=== PATIENT | female | born 1980 | race Caucasian/White ===

== ENCOUNTER 2018-04-30 09:24 | Emergency (ER) | payer BC ==
[2018-04-30] MEDS ORDERED: Sodium Chloride 0.9% 10 ML Syringe FLUSH PRN ×2 (09:28→10:49)
--- NOTE | 2018-04-30 09:32 | EDM.PDOC ---
ED HPI GENERAL MEDICAL PROBLEM - General Stated Complaint: SICK Time Seen by Provider: 04/30/18 09:29 Source of Information: Reports: Patient, Family, RN, RN Notes Reviewed History Limitations: Reports: Other (anxiety) - History of Present Illness INITIAL COMMENTS - FREE TEXT/NARRATIVE: Pt to the ER with c/o chest pain, numbness and tingling in the arms, SOB and diaphoresis. She states the chest pain began about 0850 and she felt she was unable to catch her breath. She states history of anxiety, depression, and GERD. Pt denies N/V/D. Onset: Today, Sudden Duration: Constant Location: Reports: Chest Quality: Reports: Pressure Severity: Moderate Improves with: Reports: None Worsens with: Reports: None Associated Symptoms: Reports: Chest Pain, Diaphoresis, Shortness of Breath, Weakness (arms bilaterally) Mid-Sternal Pain Score (Numeric/FACES): 9 - Related Data Allergies Allergy/AdvReac Type Severity Reaction Status Date / Time No Known Allergies Allergy Verified 04/30/18 09:49 Home Meds: Home Meds Citalopram [Citalopram HBr] 40 mg PO DAILY 04/30/18 [History] Lisdexamfetamine Dimesylate [Vyvanse] 30 mg PO DAILY 04/30/18 [History] Omeprazole Magnesium [Prilosec Otc] 20 mg PO DAILY 04/30/18 [History] buPROPion [Wellbutrin SR] 150 mg PO DAILY 04/30/18 [History] ED ROS GENERAL - Review of Systems Review Of Systems: ROS reveals no pertinent complaints other than HPI. ED EXAM, GENERAL - Physical Exam Exam: See Below Exam Limited By: Other (Very anxious) General Appearance: Alert, WD/WN, Anxious, Moderate Distress Eye Exam: Bilateral Eye: EOMI, Normal Inspection Ears: Normal External Exam, Hearing Grossly Normal Nose: Normal Inspection Throat/Mouth: Normal Inspection, Normal Lips, Normal Teeth, Normal Gums, Normal Oropharynx, Normal Voice, No Airway Compromise Head: Atraumatic, Normocephalic Neck: Normal Inspection, Supple, Non-Tender, Full Range of Motion Respiratory/Chest: No Respiratory Distress, Lungs Clear, Normal Breath Sounds, No Accessory Muscle Use, Chest Non-Tender, Other (hyperventilation) Cardiovascular: Normal Peripheral Pulses, Regular Rate, Rhythm, No Edema, No Gallop, No JVD, No Murmur, No Rub Peripheral Pulses: 2+: Radial (L), Radial (R), Dorsalis Pedis (L), Dorsalis Pedis (R) GI/Abdominal: Normal Bowel Sounds, Soft, Non-Tender (Female) Exam: Deferred Rectal (Female) Exam: Deferred Back Exam: Normal Inspection, Full Range of Motion Extremities: Normal Inspection, Normal Range of Motion, Non-Tender, No Pedal Edema, Normal Capillary Refill Neurological: Alert, Oriented, Slow to Respond, Other (states her arms are heavy and numb, states she is unable to hold them up. ) Psychiatric: Anxious, Tearful Skin Exam: Warm, Diaphoretic Lymphatic: No Adenopathy EKG INTERPRETATION EKG Date: 04/30/18 Time: 09:28 Rate (Beats/Min): 65 ST-T: Elevated (anterior leads) Comparison: NA - No Prior EKG Course - Vital Signs Last Recorded V/S: Last Vital Signs Temp 95.6 F 04/30/18 09:31 Pulse 73 04/30/18 09:31 Resp 20 04/30/18 09:31 BP 127/87 04/30/18 11:20 Pulse Ox 100 04/30/18 09:31 - Orders/Labs/Meds Orders: Active Orders 24 hr Category Date Time Status EKG Documentation Completion [RC] STAT Care 04/30/18 09:28 Active Peripheral IV Care [RC] . DIRECTED Care 04/30/18 09:29 Active Peripheral IV Care [RC] . DIRECTED Care 04/30/18 10:49 Active DRUG SCREEN URINE BIORAD [URCHEM] Stat Lab 04/30/18 11:14 Ordered HCG QUALITATIVE,URINE [URCHEM] Stat Lab 04/30/18 11:14 Ordered UA W/MICROSCOPIC [URIN] Stat Lab 04/30/18 11:14 Ordered Heparin Sodium/0.45% NaCl [Heparin 25,000 Units in 1/2 Med 04/30/18 11:00 Active NS 500 ML] 25,000 units in 500 ml IV TITRATE Sodium Chloride 0.9% [Saline Flush] Med 04/30/18 09:28 Active 10 ml FLUSH ASDIRECTED PRN Sodium Chloride 0.9% [Saline Flush] Med 04/30/18 10:49 Active 10 ml FLUSH ASDIRECTED PRN Peripheral IV Insertion Adult [OM.PC] Stat Oth 04/30/18 09:28 Ordered Peripheral IV Insertion Adult [OM.PC] Stat Oth 04/30/18 10:49 Ordered Medication Orders Heparin Sodium/Sodium Chloride (Heparin 25,000 Units In 1/2 Ns 500 Ml) 25,000 units in 500 mls @ 25.038 mls/hr IV TITRATE ISAIAS; Protocol Last Admin: 04/30/18 11:05 Dose: 18 units/kg/hr, 37.557 mls/hr Sodium Chloride (Saline Flush) 10 ml FLUSH ASDIRECTED PRN PRN Reason: Keep Vein Open Last Admin: 04/30/18 10:35 Dose: 10 ml Sodium Chloride (Saline Flush) 10 ml FLUSH ASDIRECTED PRN PRN Reason: Keep Vein Open Labs: Laboratory Tests 04/30/18 04/30/18 04/30/18 Range/Units 09:35 09:35 09:35 WBC 10.8 H (5.0-10.0) 10^3/uL RBC 4.88 (4.2-5.4) 10^6/uL Hgb 14.1 (12.0-16.0) g/dL Hct 42.3 (37.0-47.0) % MCV 86.7 (80-100) fL MCH 28.9 (27.0-34.0) pg MCHC 33.3 (33.0-35.0) g/dL Plt Count 314 (150-450) 10^3/uL Neut % (Auto) 45.9 (42.2-75.2) % Lymph % (Auto) 39.0 (20.5-50.1) % [place] % (Auto) 11.0 H (2-8) % Eos % (Auto) 3.8 H (1.0-3.0) % Baso % (Auto) 0.3 (0.0-1.0) % PT 9.9 (9.0-12.0) SEC INR 1.0 (0.9-1.2) Sodium 136 (135-145) mmol/L Potassium 3.4 L (3.6-5.0) mmol/L Chloride 104 (101-111) mmol/L Carbon Dioxide 20.0 L (21.0-31.0) mmol/L Anion Gap 15.4 BUN 13 (7-18) mg/dL Creatinine 1.1 (0.6-1.3) mg/dL Est Cr Clr Drug Dosing 64.28 mL/min Estimated GFR (MDRD) 55 BUN/Creatinine Ratio 11.81 Glucose 150 H (74-105) mg/dL Calcium 9.2 (8.4-10.2) mg/dl Total Bilirubin 1.0 (0.2-1.0) mg/dL AST 28 (10-42) IU/L ALT 23 (10-60) IU/L Alkaline Phosphatase 81 (42-121) IU/L Troponin I < 0.02 (0.00-0.02) ng/ml Total Protein 7.4 (6.7-8.2) g/dl Albumin 4.1 (3.2-5.5) g/dl Globulin 3.3 Albumin/Globulin Ratio 1.24 Urine HCG, Qual Urine Opiates Screen (NEGATIVE) Ur Oxycodone Screen (NEGATIVE) Urine Methadone Screen (NEGATIVE) Ur Barbiturates Screen (NEGATIVE) U Tricyclic Antidepress (NEGATIVE) Ur Phencyclidine Scrn (NEGATIVE) Ur Amphetamine Screen (NEGATIVE) U Methamphetamines Scrn (NEGATIVE) Urine MDMA Screen (NEGATIVE) U Benzodiazepines Scrn (NEGATIVE) Urine Cocaine Screen (NEGATIVE) U Marijuana (THC) Screen (NEGATIVE) Ethyl Alcohol < 5 mg/dL 04/30/18 04/30/18 Range/Units 11:14 11:14 WBC (5.0-10.0) 10^3/uL RBC (4.2-5.4) 10^6/uL Hgb (12.0-16.0) g/dL Hct (37.0-47.0) % MCV (80-100) fL MCH (27.0-34.0) pg MCHC (33.0-35.0) g/dL Plt Count (150-450) 10^3/uL Neut % (Auto) (42.2-75.2) % Lymph % (Auto) (20.5-50.1) % [place] % (Auto) (2-8) % Eos % (Auto) (1.0-3.0) % Baso % (Auto) (0.0-1.0) % PT (9.0-12.0) SEC INR (0.9-1.2) Sodium (135-145) mmol/L Potassium (3.6-5.0) mmol/L Chloride (101-111) mmol/L Carbon Dioxide (21.0-31.0) mmol/L Anion Gap BUN (7-18) mg/dL Creatinine (0.6-1.3) mg/dL Est Cr Clr Drug Dosing mL/min Estimated GFR (MDRD) BUN/Creatinine Ratio Glucose (74-105) mg/dL Calcium (8.4-10.2) mg/dl Total Bilirubin (0.2-1.0) mg/dL AST (10-42) IU/L ALT (10-60) IU/L Alkaline Phosphatase (42-121) IU/L Troponin I (0.00-0.02) ng/ml Total Protein (6.7-8.2) g/dl Albumin (3.2-5.5) g/dl Globulin Albumin/Globulin Ratio Urine HCG, Qual Negative Urine Opiates Screen Negative (NEGATIVE) Ur Oxycodone Screen Negative (NEGATIVE) Urine Methadone Screen Negative (NEGATIVE) Ur Barbiturates Screen Negative (NEGATIVE) U Tricyclic Antidepress Negative (NEGATIVE) Ur Phencyclidine Scrn Negative (NEGATIVE) Ur Amphetamine Screen Positive H (NEGATIVE) U Methamphetamines Scrn Negative (NEGATIVE) Urine MDMA Screen Negative (NEGATIVE) U Benzodiazepines Scrn Negative (NEGATIVE) Urine Cocaine Screen Negative (NEGATIVE) U Marijuana (THC) Screen Negative (NEGATIVE) Ethyl Alcohol mg/dL Meds: Medications Generic Name Dose Route Start Last Admin Trade Name Freq PRN Reason Stop Dose Admin Heparin Sodium/Sodium Chloride 25,000 units in 500 mls @ 25.038 mls/hr 11:00 04/30/18 11:05 Heparin 25,000 Units In 1/2 Ns 500 Ml IV 18 units/kg/hr TITRATE ISAIAS 37.557 mls/hr Administration Protocol 12 UNITS/KG/HR Sodium Chloride 10 ml 04/30/18 09:28 04/30/18 10:35 Saline Flush FLUSH 10 ml ASDIRECTED PRN Administration Keep Vein Open Sodium Chloride 10 ml 04/30/18 10:49 Saline Flush FLUSH ASDIRECTED PRN Keep Vein Open Discontinued Medications Generic Name Dose Route Start Last Admin Trade Name Freq PRN Reason Stop Dose Admin Aspirin 324 mg 04/30/18 10:47 04/30/18 10:54 Aspirin PO 04/30/18 10:48 324 mg ONETIME ONE Administration Heparin Sodium (Porcine) Confirm 04/30/18 11:00 04/30/18 11:04 Heparin Sodium Administered 04/30/18 11:01 Not Given Dose 5,000 units .ROUTE .STK-MED ONE Heparin Sodium (Porcine) 4,000 units 04/30/18 11:02 04/30/18 11:04 Heparin Sodium IVPUSH 04/30/18 11:03 4,000 units .BOLUS ONE Administration Nitroglycerin 0.4 mg 04/30/18 11:08 Nitrostat SL 04/30/18 11:09 ONETIME ONE Nitroglycerin 0.4 mg 04/30/18 10:59 04/30/18 11:20 Nitrostat SL 04/30/18 11:00 0.4 mg ONETIME ONE Administration Tenecteplase 50 mg 04/30/18 10:49 04/30/18 11:00 Tnkase IV 04/30/18 10:50 50 mg ONETIME ONE Administration Protocol - Radiology Interpretation Free Text/Narrative:: Chest xray: No acute cardiopulmonary abnormality. Azygous lymphadenopathy See rad report - Re-Assessments/Exams Free Text/Narrative Re-Assessment/Exam: 04/30/18 11:43 Discussed patient case with Dr. Omalley who advised Heparin bolus, Heparin drip, and TNKase be given. The patient will then be transferred via [facility] to [facility] in . Departure - Departure Time of Disposition: 11:42 Disposition: DC/Tfer to Acute Hospital 02 Reason for Transfer *Q: Other Condition: Fair, Serious, Critical Clinical Impression: Acute myocardial infarction Qualifiers: Myocardial infarction type: ST elevation myocardial infarction Involved coronary artery: LAD coronary artery Qualified Code(s): I21.02 - ST elevation ( STEMI) myocardial infarction involving left anterior descending coronary artery Referrals: PCP,Unobtain [Primary Care Provider] - Forms: ED Department Discharge, Interfacility Transfer EMTALA - My Orders Last 24 Hours: My Active Orders 04/30/18 09:28 EKG Documentation Completion [RC] STAT Sodium Chloride 0.9% [Saline Flush] 10 ml FLUSH ASDIRECTED PRN Peripheral IV Insertion Adult [OM.PC] Stat 04/30/18 09:29 Peripheral IV Care [RC] . DIRECTED 04/30/18 10:49 Peripheral IV Care [RC] . DIRECTED Sodium Chloride 0.9% [Saline Flush] 10 ml FLUSH ASDIRECTED PRN Peripheral IV Insertion Adult [OM.PC] Stat 04/30/18 11:00 Heparin Sodium/0.45% NaCl [Heparin 25,000 Units in 1/2 NS 500 ML] 25,000 units in 500 ml IV TITRATE 04/30/18 11:14 DRUG SCREEN URINE BIORAD [URCHEM] Stat HCG QUALITATIVE,URINE [URCHEM] Stat UA W/MICROSCOPIC [URIN] Stat - Assessment/Plan Last 24 Hours: My Active Orders 04/30/18 09:28 EKG Documentation Completion [RC] STAT Sodium Chloride 0.9% [Saline Flush] 10 ml FLUSH ASDIRECTED PRN Peripheral IV Insertion Adult [OM.PC] Stat 04/30/18 09:29 Peripheral IV Care [RC] . DIRECTED 04/30/18 10:49 Peripheral IV Care [RC] . DIRECTED Sodium Chloride 0.9% [Saline Flush] 10 ml FLUSH ASDIRECTED PRN Peripheral IV Insertion Adult [OM.PC] Stat 04/30/18 11:00 Heparin Sodium/0.45% NaCl [Heparin 25,000 Units in 1/2 NS 500 ML] 25,000 units in 500 ml IV TITRATE 04/30/18 11:14 DRUG SCREEN URINE BIORAD [URCHEM] Stat HCG QUALITATIVE,URINE [URCHEM] Stat UA W/MICROSCOPIC [URIN] Stat
[2018-04-30 10:01] LABS: ANION GAP 15.4; CHLORIDE,CL 104 mmol/L (101-111); SODIUM,NA 136 mmol/L (135-145)
[2018-04-30] MEDS ORDERED: Aspirin 81 MG Tab.Chew PO ONE (10:47)
[2018-04-30] MEDS ORDERED: Tenecteplase 50 MG Kit IV ONE (10:49)
[2018-04-30] MEDS ORDERED: Nitroglycerin 0.4 MG Tab.SL SL ONE ×2 (10:59→11:08)
[2018-04-30] MEDS ORDERED: Heparin Sodium 5,000 Units/ML Vial ONE (11:00)
[2018-04-30] MEDS ORDERED: Heparin Sodium/0.45% NaCl 25,000 UNITS/500 ML BAG IV SCH (11:00)
[2018-04-30] MEDS ORDERED: Heparin Sodium 5,000 Units/ML Vial IVPUSH ONE (11:02)
--- NOTE | 2018-04-30 11:16 | CR ---
CLINICAL HISTORY: 37-year-old female with chest pain. INTERPRETATION: Upright AP chest radiograph documents large azygous lymph node (no comparison films i mmediately available). Normal cardiac silhouette and bony thorax (external care tech leads). No cephalization of flow, signs of alveolar edema or dependent pleural effusion. No parenchymal lung nodule or mass lesion, other hilar or mediastinal lymphadenopathy, focal lobar pn eumonia or atelectasis. No pneumothorax or free subdiaphragmatic air. CONCLUSION: No acute cardiopulmonary abnormality. Azygous lymphadenopathy.
== END 2018-04-30 11:34 ==
LOC: DL.ED 09:24
DX: I21.02 ST elevation (STEMI) myocardial infarction involving left anterior descending coronary artery (principal); Z79.899 Other long term (current) drug therapy
CPT/HCPCS: 36415; 71045; 80053; 80305; 81001; 81025; 84484; 85025; 85610; 93005; 96365; 96375; 99285; A9270; G0480; J1644; J3101; J7050

== ENCOUNTER 2020-12-22 05:30 | Day surgery (SDC) | payer BC ==
[2020-12-22] MEDS ORDERED: Midazolam 1 MG/ML 2 ML SDV IV ONE ×3 (05:31→06:39)
[2020-12-22] MEDS ORDERED: fentaNYL 100 MCG/2 ML SDV IV ONE ×3 (05:31→06:37)
[2020-12-22] MEDS ORDERED: Dextrose 5%-0.45% NaCl 1,000 ML IV SCH (06:00)
[2020-12-22] MEDS ORDERED: Midazolam 1 MG/ML 2 ML SDV ONE (06:10)
[2020-12-22] MEDS ORDERED: fentaNYL 100 MCG/2 ML SDV ONE (06:11)
--- NOTE | 2020-12-22 07:29 | OR ---
DATE: 12/22/2020 PROCEDURES: Esophagogastroduodenoscopy and multiple pinch biopsies. INSTRUMENT USED: [id number] Olympus video panendoscope. PREMEDICATIONS: No oral or topical anesthesia was used. Fentanyl 100 mcg intravenous, Versed 2 mg intravenous, and nasal O2 cannula. The procedure was done under pulse oximetry, BP recording, and cardiac care nurse. INDICATIONS: The patient with longstanding heartburn and regurgitation, unexplained and not responsive to medical measures, on PPI. Esophagogastroduodenoscopy is performed for detection of any active erosive lesions, Esteves esophagus and/or malignancy also under consideration, H pylori status to be determined, endoscopic hemostasis therapy if needed. DESCRIPTION OF PROCEDURE: The scope was passed with ease. Adequate visualization of the esophagus was made from the proximal to the distal areas. No upper esophageal lesions were identified. No distal esophageal stricture. No uphill or downhill esophageal varices. No Aysha-Celeste tear. No evidence of erosive esophagitis by [place] criteria. No esophageal polyp or tumor mass was identified. The Z-line was seen at around 39 cm distal to the oral verge. No proximal gastric varices were noted. Gastric fundus examination by retroflexion showed numerous diminutive benign-appearing polyps. No gastric ulcer, malignant mass, or vascular ectasia was identified. The duodenal bulb showed no ulcer. The visualized second part of the duodenum was unremarkable. Multiple pinch biopsies were taken from the gastric antrum and proximal body and sent for PyloriTek test for H pylori, and if negative in an hour, the tissue is to be sent for histopathology. Gastric antral erosion was noted without bleeding from it. No bleeding was noted from any of the visualized areas at the completion of the examination. IMPRESSION: Gastric antral erosion and diminutive gastric fundus polyps. The patient tolerated the procedure well. [facility] /[id number]
== END 2020-12-22 08:50 | disposition home or self-care (01) ==
LOC: DL.ENDO 05:30
PROVIDERS: ATTEND Internal Medicine Gastroenterology
DX: K25.9 Gastric ulcer, unspecified as acute or chronic, without hemorrhage or perforation (principal); K31.7 Polyp of stomach and duodenum; K21.9 Gastro-esophageal reflux disease without esophagitis; E66.09 Other obesity due to excess calories; I25.10 Atherosclerotic heart disease of native coronary artery without angina pectoris; Z95.5 Presence of coronary angioplasty implant and graft; Z98.890 Other specified postprocedural states; Z87.891 Personal history of nicotine dependence; Z68.41 Body mass index [BMI] 40.0-44.9, adult
CPT/HCPCS: 43239; 81025; 87077; J2250; J3010; J7042